=== PATIENT | female | born 1970 | race Caucasian/White ===

== ENCOUNTER 2021-09-02 07:21 | Inpatient (IN) | payer BC, OTHER ==
[~2021-09-02] VITALS: Ht 157.5 cm; Wt 76.1 kg
[2021-09-02] MEDS ORDERED: SODIUM CHLORIDE 0.9% 1,000 ML IV ONE ×2 (07:45→09:00)
[2021-09-02] MEDS ORDERED: KETOROLAC TROMETH 30 MG/ML 1ML VIAL IV ONE (07:45)
[2021-09-02 08:27] LABS: Basophils # (auto) 0.1 10 ^3/uL (0-0.2); Basophils % (auto) 0.3 % (0.0-2.0); Eosinophils # (auto) 0 10 ^3/uL (0-0.8); Eosinophils % (auto) 0.1 % (0.0-7.0); Hematocrit 41.8 % (36.0-46.0); Hemoglobin 13.6 g/dL (12.2-16.2); Lymphocytes # (auto) 1.1 10 ^3/uL (0.4-5.4); Lymphocytes % (auto) 5.9 % (10.0-50.0); Mean Corpuscular Hemoglobin 29.8 pg (28.0-32.0); Mean Corpuscular Hgb Conc. 32.6 g/dL (32.0-36.0); Mean Corpuscular Volume 91.5 fL (80.0-100.0); Monocytes # (auto) 0.9 10 ^3/uL (0-1.3); Monocytes % (auto) 4.9 % (0.0-12.0); Neutrophils # (auto) 16.7 10 ^3/uL (1.6-8.6); Neutrophils % (auto) 88.8 % (37.0-80.0); Red Blood Cells 4.57 10^6/uL (4.0-5.20); Red Cell Distribution Width 13.9 % (11.8-14.3); White Blood Cell 18.7 10^3/uL (4.4-10.8)
[2021-09-02 08:29] LABS: Albumin 4.7 g/dL (3.4-5.0); Calcium 9.3 mg/dL (8.5-10.1)
[2021-09-02 08:34] LABS: BUN/Creatinine Ratio 17.7; Bilirubin, Total 0.4 mg/dL (0.2-1.0); Total Protein 7.7 g/dL (6.4-8.2)
[2021-09-02 08:50] LABS: Urine Bacteria FEW /hpf (None Seen); Urine Blood 3+ /uL (Negative); Urine Hyaline Cast FEW /lpf (0 - 2); Urine Mucus FEW (None Seen); Urine Specific Gravity 1.027 (1.001-1.035); Urine WBC 7 /hpf (0 - 5)
[2021-09-02] MEDS ORDERED: MORPHINE SULFATE INJECTION 2 MG/ML SYRG IV PRN ×2 (09:00)
[2021-09-02] MEDS ORDERED: LORazepam 0.5 MG TAB PO PRN (09:00)
[2021-09-02] MEDS ORDERED: ONDANSETRON HCL 4 MG/2 ML VIAL IV PRN (09:00)
[2021-09-02] MEDS ORDERED: cefTRIAXone 1GM/50ML D5W 50 ML IV ONE (09:00)
[2021-09-02] MEDS ORDERED: NITROGLYCERIN 0.4 MG SL TAB SL PRN (09:00)
[2021-09-02] MEDS ORDERED: DOCUSATE SOD 100 MG CAP PO PRN (09:00)
[2021-09-02] MEDS ORDERED: DEXTROSE (50%) 50ML SYRG IV PRN (09:00)
[2021-09-02] MEDS ORDERED: TAMSULOSIN HYDROCHLORIDE 0.4 MG CAP PO ONE (09:00)
[2021-09-02] MEDS ORDERED: cefTRIAXone 1GM/50ML D5W 50 ML IV SCH (09:00)
[2021-09-02] MEDS: SODIUM CHLORIDE 0.9% 1,000 ML IV SCH ×2 (09:00→22:48)
[2021-09-02] MEDS: ACCU-CHEK COMFORT CURVE STRIP VI SCH ×3 (11:30→22:00)
[2021-09-02] MEDS: InsuLIN REG 1unit/0.01ml Soln (100units/ml) SC SCH ×3 (11:30→22:00)
[2021-09-02 22:00] VITALS: BP 135/89
[2021-09-03 05:00] VITALS: BP 127/71
[2021-09-03] MEDS: ACCU-CHEK COMFORT CURVE STRIP VI SCH ×4 (06:30→21:41)
[2021-09-03] MEDS: InsuLIN REG 1unit/0.01ml Soln (100units/ml) SC SCH ×4 (06:30→21:40)
[2021-09-03] MEDS ORDERED: SERT-160 PO (07:39)
[2021-09-03] MEDS: HYDROcodone-ACET 5/325MG TAB PO PRN (08:26)
[2021-09-03 08:31] LABS: Basophils # (auto) 0 10 ^3/uL (0-0.2); Basophils % (auto) 0.4 % (0.0-2.0); Eosinophils # (auto) 0.1 10 ^3/uL (0-0.8); Eosinophils % (auto) 0.8 % (0.0-7.0); Hematocrit 37.2 % (36.0-46.0); Hemoglobin 12.1 g/dL (12.2-16.2); Lymphocytes # (auto) 1.4 10 ^3/uL (0.4-5.4); Lymphocytes % (auto) 22.6 % (10.0-50.0); Mean Corpuscular Hemoglobin 29.9 pg (28.0-32.0); Mean Corpuscular Hgb Conc. 32.5 g/dL (32.0-36.0); Monocytes # (auto) 0.4 10 ^3/uL (0-1.3); Monocytes % (auto) 5.8 % (0.0-12.0); Neutrophils # (auto) 4.3 10 ^3/uL (1.6-8.6); Neutrophils % (auto) 70.4 % (37.0-80.0); Nucleated Red Blood Cells % 0.1 %; Red Blood Cells 4.04 10^6/uL (4.0-5.20); Red Cell Distribution Width 13.9 % (11.8-14.3); White Blood Cell 6.1 10^3/uL (4.4-10.8)
[2021-09-03 09:00] VITALS: BP 129/74
[2021-09-03] MEDS ORDERED: KETOROLAC TROMETH 30 MG/ML 1ML VIAL IV PRN (11:15)
[2021-09-03 11:34] LABS: Albumin 3.5 g/dL (3.4-5.0); Calcium 8.4 mg/dL (8.5-10.1)
[2021-09-03 11:36] LABS: BUN/Creatinine Ratio 13.2
[2021-09-03 11:39] LABS: Bilirubin, Total 0.6 mg/dL (0.2-1.0)
[2021-09-03 11:45] LABS: Potassium 4.1 mmol/L (3.5-5.1)
[2021-09-03] MEDS: PANTOPRAZOLE 40 MG/10 ML VIAL INJ IV SCH (11:59)
[2021-09-03 12:57] VITALS: BP 127/55
[2021-09-03] MEDS: SODIUM CHLORIDE 0.9% 1,000 ML IV SCH (18:44)
[2021-09-03 22:00] VITALS: BP 123/62
[2021-09-04 05:00] VITALS: BP 131/70
[2021-09-04] MEDS: InsuLIN REG 1unit/0.01ml Soln (100units/ml) SC SCH (06:52)
[2021-09-04] MEDS: ACCU-CHEK COMFORT CURVE STRIP VI SCH (06:53)
[2021-09-04] MEDS: SODIUM CHLORIDE 0.9% 1,000 ML IV SCH (07:06)
[2021-09-04 07:56] LABS: Potassium 4.2 mmol/L (3.5-5.1)
[2021-09-04 07:59] LABS: Basophils # (auto) 0 10 ^3/uL (0-0.2); Basophils % (auto) 0.5 % (0.0-2.0); Eosinophils # (auto) 0.1 10 ^3/uL (0-0.8); Eosinophils % (auto) 1.2 % (0.0-7.0); Hematocrit 36.5 % (36.0-46.0); Hemoglobin 12.3 g/dL (12.2-16.2); Lymphocytes # (auto) 1.7 10 ^3/uL (0.4-5.4); Mean Corpuscular Hgb Conc. 33.7 g/dL (32.0-36.0); Monocytes # (auto) 0.3 10 ^3/uL (0-1.3); Monocytes % (auto) 5.8 % (0.0-12.0); Neutrophils # (auto) 3.5 10 ^3/uL (1.6-8.6); Neutrophils % (auto) 62.5 % (37.0-80.0); Nucleated Red Blood Cells % 0.1 %; Red Blood Cells 3.97 10^6/uL (4.0-5.20); Red Cell Distribution Width 13.9 % (11.8-14.3); White Blood Cell 5.5 10^3/uL (4.4-10.8)
[2021-09-04 08:03] LABS: Albumin 3.6 g/dL (3.4-5.0); BUN/Creatinine Ratio 21.1; Bilirubin, Total 0.3 mg/dL (0.2-1.0); Calcium 8.5 mg/dL (8.5-10.1); Total Protein 6.1 g/dL (6.4-8.2)
[2021-09-04 09:00] VITALS: BP 146/76
[2021-09-04] MEDS: PANTOPRAZOLE 40 MG/10 ML VIAL INJ IV SCH (09:57)
[2021-09-04 13:00] VITALS: BP 146/67
[2021-09-04 17:00] VITALS: BP 141/90
[2021-09-04 22:00] VITALS: BP 154/76
[2021-09-04] MEDS: SERTRALINE HCL 50 MG TAB PO SCH (22:00)
[2021-09-05] MEDS: SODIUM CHLORIDE 0.9% 1,000 ML IV SCH ×2 (03:40→20:20)
[2021-09-05 05:00] VITALS: BP 138/77
[2021-09-05 09:00] VITALS: BP 149/68
[2021-09-05] MEDS: PANTOPRAZOLE 40 MG/10 ML VIAL INJ IV SCH (11:18)
[2021-09-05] MEDS: SERTRALINE HCL 50 MG TAB PO SCH (11:19)
[2021-09-05] MEDS ORDERED: cefTRIAXone 1GM/50ML D5W 50 ML IV ONE (12:45)
[2021-09-05] MEDS ORDERED: MANNITOL FTV 25% 12.5 GM/50 ML 50 ML IV ONE (12:45)
[2021-09-05 13:00] VITALS: BP 156/91
[2021-09-05 17:00] VITALS: BP 149/99
[2021-09-05] MEDS: TAMSULOSIN HYDROCHLORIDE 0.4 MG CAP PO SCH (17:34)
[2021-09-05 20:20] LABS: INR 1.03 (0.9-1.15); Partial Thromboplastin Time 26.2 sec (23.6-33.0)
[2021-09-05 22:00] VITALS: BP 131/89
[2021-09-06 06:39] VITALS: BP 125/72
[2021-09-06 08:00] VITALS: BP 137/75
[2021-09-06] MEDS: cefTRIAXone 1GM/50ML D5W 50 ML IV SCH (08:38)
[2021-09-06 09:00] VITALS: BP 137/75
[2021-09-06] MEDS: SERTRALINE HCL 50 MG TAB PO SCH (10:09)
[2021-09-06] MEDS: PANTOPRAZOLE 40 MG/10 ML VIAL INJ IV SCH (10:09)
[2021-09-06] MEDS: ACETAMINOPHEN 325 MG TAB PO PRN (12:06)
[2021-09-06 13:00] VITALS: BP 135/82
[2021-09-06] MEDS: SODIUM CHLORIDE 0.9% 1,000 ML IV SCH (13:00)
[2021-09-06 17:00] VITALS: BP 139/69
[2021-09-06] MEDS: TAMSULOSIN HYDROCHLORIDE 0.4 MG CAP PO SCH (17:46)
[2021-09-06 22:00] VITALS: BP 135/79
[2021-09-07] MEDS: SODIUM CHLORIDE 0.9% 1,000 ML IV SCH ×2 (05:40→21:33)
[2021-09-07 05:54] VITALS: BP 128/81
[2021-09-07 08:00] VITALS: BP 137/75
[2021-09-07 09:00] VITALS: BP 141/79
[2021-09-07] MEDS: cefTRIAXone 1GM/50ML D5W 50 ML IV SCH (09:00)
[2021-09-07] MEDS: PANTOPRAZOLE 40 MG/10 ML VIAL INJ IV SCH (10:26)
[2021-09-07] MEDS: SERTRALINE HCL 50 MG TAB PO SCH (10:26)
[2021-09-07 13:00] VITALS: BP 143/88
[2021-09-07] MEDS ORDERED: ZOLPIDEM TARTRATE 5 MG TAB PO PRN (14:15)
[2021-09-07 17:00] VITALS: BP 122/60
[2021-09-07] MEDS: TAMSULOSIN HYDROCHLORIDE 0.4 MG CAP PO SCH (17:38)
[2021-09-07 22:00] VITALS: BP 144/73
[2021-09-08 05:23] VITALS: BP 117/62
[2021-09-08 09:00] VITALS: BP 104/56
[2021-09-08] MEDS: PANTOPRAZOLE 40 MG/10 ML VIAL INJ IV SCH (09:01)
[2021-09-08] MEDS: cefTRIAXone 1GM/50ML D5W 50 ML IV SCH (09:01)
[2021-09-08] MEDS: SERTRALINE HCL 50 MG TAB PO SCH (09:01)
[2021-09-08] MEDS ORDERED: ceFAZolin 1GM/50ML 100 ML IV ONE (12:58)
[2021-09-08] MEDS ORDERED: fentaNYL CITRATE 100 MCG/2 ML VL ONE (13:21)
[2021-09-08] MEDS ORDERED: MEPERIDINE HCL (50 MG/ML) 1 ML VIAL ONE (13:21)
[2021-09-08] MEDS ORDERED: MIDAZOLAM HCL 2MG/2ML 2ml VIAL (1mg/ml) ONE (13:21)
[2021-09-08] MEDS ORDERED: PROPOFOL 10 MG/ML 20 ML IV ONE (13:44)
[2021-09-08] MEDS ORDERED: DexAMETHasone SOD PHOS 10MG/1ML VIAL INJ ONE (13:44)
[2021-09-08] MEDS ORDERED: HYDROmorphone HCL 2 MG/ML VL IV PRN (14:00)
[2021-09-08] MEDS ORDERED: MORPHINE SULFATE 4 MG/ML SYR/VIAL IV PRN (14:00)
[2021-09-08] MEDS ORDERED: MIDAZOLAM HCL 2MG/2ML 2ml VIAL (1mg/ml) IV PRN (14:00)
[2021-09-08] MEDS ORDERED: ePHEDrine SULFATE 50 MG/ML AMP IV PRN (14:00)
[2021-09-08] MEDS ORDERED: hydrALAZINE HCL 20 MG/ML VL IV PRN (14:00)
[2021-09-08] MEDS ORDERED: LABETALOL HCL 5 MG/ML 4ML SYRINGE IV PRN (14:00)
[2021-09-08] MEDS ORDERED: ONDANSETRON HCL 4 MG/2 ML VIAL IV PRN (14:00)
[2021-09-08] MEDS ORDERED: IOHEXOL 300 MG/ML 100ML BOTTLE IJ ONE (14:04)
[2021-09-08] MEDS: SODIUM CHLORIDE 0.9% 1,000 ML IV SCH (15:00)
[2021-09-08 17:00] VITALS: BP 166/87
[2021-09-08] MEDS: TAMSULOSIN HYDROCHLORIDE 0.4 MG CAP PO SCH (18:39)
[2021-09-08 22:00] VITALS: BP 124/50
[2021-09-09] MEDS: ACETAMINOPHEN 325 MG TAB PO PRN (04:35)
[2021-09-09 05:00] VITALS: BP 146/72
[2021-09-09 06:54] LABS: Albumin 3.9 g/dL (3.4-5.0); BUN/Creatinine Ratio 19.2; Calcium 9.4 mg/dL (8.5-10.1); Potassium 4.5 mmol/L (3.5-5.1)
[2021-09-09 06:56] LABS: Bilirubin, Total 0.4 mg/dL (0.2-1.0); Total Protein 6.6 g/dL (6.4-8.2)
[2021-09-09] MEDS: PANTOPRAZOLE 40 MG/10 ML VIAL INJ IV SCH (08:36)
[2021-09-09] MEDS: SERTRALINE HCL 50 MG TAB PO SCH (08:37)
[2021-09-09] MEDS: cefTRIAXone 1GM/50ML D5W 50 ML IV SCH (08:37)
[2021-09-09] MEDS: HYDROcodone-ACET 5/325MG TAB PO PRN (08:38)
[2021-09-09] MEDS: SODIUM CHLORIDE 0.9% 1,000 ML IV SCH (08:46)
[2021-09-09 09:00] VITALS: BP 135/80
[2021-09-09 12:03] VITALS: BP 135/80
== END 2021-09-09 12:35 | disposition home or self-care (01) | DRG 872 ==
LOC: EDBD 07:21 → ER 07:21 → TELE 09:00 → TELE-WESTW 20:30
PROVIDERS: ADMIT Family Medicine; ATTEND Family Medicine
PROC: 0TC78ZZ Extirpation of Matter from Left Ureter, Via Natural or Artificial Opening Endoscopic (ICD-10-PCS; principal; 2021-09-08 13:27)
DX: A41.9 Sepsis, unspecified organism (principal); N13.6 Pyonephrosis; N20.2 Calculus of kidney with calculus of ureter; N17.9 Acute kidney failure, unspecified; K57.30 Diverticulosis of large intestine without perforation or abscess without bleeding; Z20.822 Contact with and (suspected) exposure to COVID-19; F32.A Depression, unspecified; F41.9 Anxiety disorder, unspecified; R73.9 Hyperglycemia, unspecified; R91.1 Solitary pulmonary nodule
CPT/HCPCS: 36415; 71045; 74018; 74176; 76000; 76775; 80053; 81001; 82962; 85025; 85610; 85730; 87086; 87426; 93005; 96361; 96365; 96375; C9113; G0378; J0690; J0696; J1100; J1885; J2250; J2405; J2704